=== PATIENT | female | born 1975 | race Caucasian/White ===

== ENCOUNTER 2016-08-09 17:15 | Observation (INO) | payer OTHER ==
[2016-08-09] MEDS ORDERED: NS 500 ML IV ONE (17:27)
[2016-08-09] MEDS ORDERED: ASPIRIN 81 MG CHEWABLE TAB PO ONE (17:27)
--- NOTE | 2016-08-09 17:27 | EDPHY ---
H & P Stated Complaint: cp off and on for a few weeks HPI/ROS: HPI CHIEF COMPLAINT: Chest pain HISTORY OF PRESENT ILLNESS: this patient very pleasant 41-year-old female, denies any significant medical problems, specifically denies a history of any heart disease, does not take any daily medications. She presents to the emergency room with left-sided chest discomfort described as a dull ache intermittently over the past 2 weeks. She does have family history of heart disease her father had an VA with coronary artery disease at her age. She has never had evaluation of her heart. She tells me over the past 2 weeks she has had intermittent chest discomfort. Today she developed a worsening chest discomfort at rest. She did have tingling in her left arm/hand. This since has resolved. She did go to urgent care was referred here to the emergency room. Upon arrival to the emergency room she denies having any chest pain shortness of breath or tingling or pleuritic pain. Past Medical History: Denies significant medical history Past Surgical History: Includes a large lipoma removed, and lobectomy last surgery was a month ago Social History: Denies use of drugs, alcohol, tobacco products Family History: Noncontributory ROS REVIEW OF SYSTEMS: A comprehensive 10 point review of systems is otherwise negative aside from elements mentioned in the history of present illness. Exam Constitutional triage nursing summary reviewed, vital signs reviewed, awake/ alert. Eyes normal conjunctivae and sclera, EOMI, PERRLA. HENT normal inspection, atraumatic, moist mucus membranes, no epistaxis, neck supple/ no meningismus, no raccoon eyes. Respiratory clear to auscultation bilaterally, normal breath sounds, no respiratory distress, no wheezing. Cardiovascular rate normal, regular rhythm, no murmur, no edema, distal pulses normal. Gastrointestinal soft, non-tender, no rebound, no guarding, normal bowel sounds, no distension, no pulsatile mass. Genitourinary no CVA tenderness. Musculoskeletal no midline vertebral tenderness, full range of motion, no calf swelling, no tenderness of extremities, no meningismus, good pulses, neurovascularly intact. Skin pink, warm, & dry, no rash, skin atraumatic. Neurologic awake, alert and oriented x 3, AAOx3, moves all 4 extremities equally, motor intact, sensory intact, CN II-XII intact, normal cerebellar, normal vision, normal speech. Psychiatric normal mood/affect. Heme/Lymph/Immune no lymphadenopathy. Differential diagnosis includes but is not limited to: ACS, atypical chest pain , pneumothorax, pneumonia, pulmonary embolism, aortic dissection, congestive heart failure, tumor, musculoskeletal pain, esophageal pain, GERD, peptic ulcer disease, pancreatitis Medical Decision Making: This patient had an IV established obtain blood work, she began full-dose aspirin, she is chest pain-free at this time. She will have an EKG, chest x-ray will rule out acute coronary syndrome here in the emergency room. Re-evaluation: EKG interpretation by me on record in [facility] system. Impression time of EKG is 1736, this is sinus rhythm rate of 55. there is no acute ST-elevation VA appreciated. There are borderline T-wave abnormalities V1, V2, V3. ED x-ray chest one view: Negative for acute cardiopulmonary disease. Image interpreted by myself. 191: Patient is resting comfortably here she is chest pain-free. I did speak with her. She is agreeable for admission overnight for serial enzymes and cardiac evaluation rule out. Will speak with the hospital service for admission. She is chest pain-free. Her troponin is negative. Chest x-ray unremarkable. Negative D-dimer. EKG shows T-wave abnormalities in anterior leads. Given her risk factors of family history, somewhat atypical cardiac presentation an abnormal EKG feel it is best to admit this patient for serial enzymes and stress test. She is agreeable for this. 1921: Spoke with the hospitalist service Dr. Cleveland Will admit. Source: Patient - Personal History LMP (Females 10-55): IUD In Place Current Tetanus/Diphtheria Vaccine: Yes - Medical/Surgical History Hx Asthma: No Hx Chronic Respiratory Disease: No Hx Diabetes: No Hx Cardiac Disease: No Hx Renal Disease: No Hx Cirrhosis: No Hx Alcoholism: No Hx HIV/AIDS: No Hx Splenectomy or Spleen Trauma: No Other PMH: DERMOID CYST REMOVAL, TONSILECTOMY - Social History Smoking Status: Never smoked Constitutional: Initial Vital Signs Temperature (C) 36.7 C 08/09/16 17:21 Heart Rate 54 L 08/09/16 17:21 Respiratory Rate 18 08/09/16 17:21 Blood Pressure 133/92 H 08/09/16 17:21 O2 Sat (%) 96 08/09/16 17:21 O2 Delivery Mode Room Air Allergies/Adverse Reactions: No Known Allergies Allergy (Verified 08/09/16 17:20) Home Medications: Medication Instructions Recorded Ibuprofen [Motrin (*)] 800 mg PO PRN PRN 08/09/16 Medical Decision Making - Data Points Laboratory Results: Laboratory Results 08/09/16 17:37 08/09/16 17:37 08/09/16 17:37 WBC 8.50 10^3/uL (3.80-9.50) RBC 4.95 10^6/uL (4.18-5.33) Hgb 15.1 g/dL (12.6-16.3) Hct 43.9 % (38.0-47.0) MCV 88.7 fL (81.5-99.8) MCH 30.5 pg (27.9-34.1) MCHC 34.4 g/dL (32.4-36.7) RDW 12.8 % (11.5-15.2) Plt Count 303 10^3/uL (150-400) MPV 10.3 fL (8.7-11.7) Neut % (Auto) 39.5 % (39.3-74.2) Lymph % (Auto) 43.6 % (15.0-45.0) Hooker % (Auto) 6.2 % (4.5-13.0) Eos % (Auto) 9.3 H % (0.6-7.6) Baso % (Auto) 1.3 % (0.3-1.7) Nucleat RBC Rel Count 0.0 % (0.0-0.2) Absolute Neuts (auto) 3.35 10^3/uL (1.70-6.50) Absolute Lymphs (auto) 3.71 H 10^3/uL (1.00-3.00) Absolute Monos (auto) 0.53 10^3/uL (0.30-0.80) Absolute Eos (auto) 0.79 H 10^3/uL (0.03-0.40) Absolute Basos (auto) 0.11 H 10^3/uL (0.02-0.10) Absolute Nucleated RBC 0.00 10^3/uL (0-0.01) Immature Gran % 0.1 % (0.0-1.1) Immature Gran # 0.01 10^3/uL (0.00-0.10) PT 13.8 SEC (12.0-15.0) INR 1.07 (0.83-1.16) APTT 29.2 SEC (23.0-38.0) D-Dimer < 0.27 ug/mLFEU (0.00-0.50) Sodium 140 mEq/L (134-144) Potassium 4.3 mEq/L (3.5-5.2) Chloride 106 mEq/L (97-110) Carbon Dioxide 24 mEq/l (22-31) Anion Gap 10 mEq/L (8-16) BUN 15 mg/dL (7-23) Creatinine 0.7 mg/dL (0.6-1.0) Estimated GFR > 60 Glucose 93 mg/dL (70-100) Calcium 9.8 mg/dL (8.5-10.4) Magnesium 1.9 mg/dL (1.6-2.3) Total Bilirubin 0.5 mg/dL (0.1-1.4) Conjugated Bilirubin 0.4 mg/dL (0.0-0.5) Unconjugated Bilirubin 0.1 mg/dL (0.0-1.1) AST 23 IU/L (14-46) ALT 27 IU/L (9-52) Alkaline Phosphatase 63 IU/L (38-126) Creatine Kinase 101 IU/L (0-156) CK-MB (CK-2) Fraction 0.56 ng/mL (0-3.19) Troponin I < 0.012 ng/mL (0-0.034) NT-Pro-B Natriuret Pep 20 pg/mL (0-125) Total Protein 7.7 g/dL (6.3-8.2) Albumin 4.7 g/dL (3.5-5.0) Lipase 133.0 IU/L (23-300) Beta HCG, Qual NEGATIVE Medications Given: Discontinued Medications Aspirin (Aspirin) 324 mg PO EDNOW ONE Stop: 08/09/16 17:28 Last Admin: 08/09/16 17:36 Dose: 324 mg Sodium Chloride (Ns) 500 mls @ 0 mls/hr IV ONCE ONE PRN Reason: As Directed Stop: 08/09/16 17:28 Last Admin: 08/09/16 17:40 Dose: 500 mls Departure - Departure Disposition: [facility] Inpatient Acute Clinical Impression: Chest pain Qualifiers: Chest pain type: unspecified Qualifier Code: (R07.9) Chest pain, unspecified Condition: Good Referrals: NONE *PRIMARY CARE P,. [Primary Care Provider] - As per Instructions
--- NOTE | 2016-08-09 17:39 | CPEKG ---
Heart Rate: 55 RR Interval: 1091 P-R Interval: 148 QRSD Interval: 96 QT Interval: 420 QTC Interval: 402 P Olney: 46 QRS Olney: 56 T Wave Olney: 38 EKG Severity - NORMAL ECG - EKG Impression: SINUS RHYTHM Electronically Signed By: David Shaw 09-Aug-2016 23:30:08
[2016-08-09 17:53] LABS: % IMMATURE GRANULYOCYTES 0.1 % (0.0-1.1); ABSOLUTE IMMATURE GRANULOCYTES 0.01 10^3/uL (0.00-0.10); ADD DIFF? NO; ADD MORPH? NO; ADD SCAN? NO; ATYPICAL LYMPHOCYTE FLAG 10 (0-99); FRAGMENT RBC FLAG 0 (0-99); HEMATOCRIT 43.9 % (38.0-47.0); HEMOGLOBIN 15.1 g/dL (12.6-16.3); LEFT SHIFT FLG 0 (0-99); LIPEMIA HEMOLYSIS FLAG 90 (0-99); MEAN CELL HEMOGLOBIN 30.5 pg (27.9-34.1); MEAN CELL HEMOGLOBIN CONCENTR. 34.4 g/dL (32.4-36.7); MEAN CELL VOLUME 88.7 fL (81.5-99.8); MEAN PLATELET VOLUME 10.3 fL (8.7-11.7); PLATELET CLUMPS FLAG 0 (0-99); PLATELET COUNT 303 10^3/uL (150-400); RED BLOOD CELL COUNT 4.95 10^6/uL (4.18-5.33); RED CELL DISTRIBUTION WIDTH 12.8 % (11.5-15.2)
[2016-08-09 18:04] LABS: INR 1.07 (0.83-1.16); PROTIME(PATIENT) 13.8 SEC (12.0-15.0)
[2016-08-09 18:05] LABS: APTT 29.2 SEC (23.0-38.0)
[2016-08-09 18:15] LABS: ALANINE AMINOTRANSFERASE 27 IU/L (9-52); ALBUMIN 4.7 g/dL (3.5-5.0); ALKALINE PHOSPHATASE 63 IU/L (38-126); ANION GAP 10 mEq/L (8-16); ASPARTATE AMINOTRANSFERASE 23 IU/L (14-46); BILIRUBIN,TOTAL 0.5 mg/dL (0.1-1.4); BILIRUBIN-CONJUGATED 0.4 mg/dL (0.0-0.5); BILIRUBIN-UNCONJUGATED 0.1 mg/dL (0.0-1.1); CALCIUM 9.8 mg/dL (8.5-10.4); CARBON DIOXIDE 24 mEq/l (22-31); CHLORIDE 106 mEq/L (97-110); CREATININE 0.7 mg/dL (0.6-1.0); GLOMERULAR FILTRATION RATE > 60; GLUCOSE 93 mg/dL (70-100); MAGNESIUM 1.9 mg/dL (1.6-2.3); POTASSIUM 4.3 mEq/L (3.5-5.2); SODIUM 140 mEq/L (134-144); TOTAL PROTEIN 7.7 g/dL (6.3-8.2)
--- NOTE | 2016-08-09 18:21 | DX ---
Portable Chest, Single View 17:50 Hours Indication: Chest pain Comparison: 2 view chest dated April 22, 2014 Findings: Lungs are well aerated and clear. No pneumothorax, edema or consolidation. Heart size withi n normal limits for degree of inspiration and AP technique. Impression: Clear lungs. Negative portable chest.
[2016-08-09 18:43] LABS: CREATINE KINASE-MB FRACTION 0.56 ng/mL (0-3.19)
[2016-08-09 19:06] LABS: TROPONIN I < 0.012 ng/mL (0-0.034)
[2016-08-09] MEDS ORDERED: ACETAMINOPHEN 325 MG TAB PO PRN (21:29)
[2016-08-09] MEDS ORDERED: ONDANSETRON DISINTEGRATING 4 MG TAB PO PRN (21:29)
[2016-08-09] MEDS ORDERED: ONDANSETRON 4 MG/2 ML VIAL IVP PRN (21:29)
--- NOTE | 2016-08-09 22:39 | GHP ---
[f rep st] HISTORY AND PHYSICAL DATE OF ADMISSION: 08/09/2016 DATE OF EVALUATION: 08/09/2016 CHIEF COMPLAINT: Chest pain. HISTORY OF PRESENT ILLNESS: This is a 41-year-old female with about 3 weeks of left-sided chest pain not associated with any shortness of breath or lightheadedness. It is kind of a dull throbbing, rad iating to her left arm. Her left arm has also became numb today, which is why she presented to the e mergency department. PAST MEDICAL AND SURGICAL HISTORY: None. MEDICATIONS: None. ALLERGIES: None. FAMILY HISTORY: She has no first degree relatives with coronary artery disease, but she does have mu ltiple members on the paternal side of her family with coronary artery disease. SOCIAL HISTORY: She does not smoke. She does not drink. REVIEW OF SYSTEMS: A 10-point review of systems is conducted and is negative except per HPI. PHYSICAL EXAM: VITAL SIGNS: Blood pressure 118/79, heart rate 78, respiration rate 14, satting 94% on room air, temperature is 36.9. GENERAL: The patient is a very pleasant young female who appears comfortable, in no acute distress. HEENT: Shows her to be normocephalic, atraumatic. CARDIOVASCULA R: Regular rate and rhythm. No murmurs, rubs or gallops. CHEST: Shows her to be mildly tender to palpation over her left chest. Pain is not triggered by movement of her left arm. The pain does not seem to really be reproducible by palpation, however. PULMONARY: Shows lungs clear to auscultation bilaterally. ABDOMEN: Soft, nontender, nondistended. SKIN: Shows no rash. : No Cheek. NEURO LOGIC: Shows her to be alert and oriented x3. She is moving all extremities. PSYCHIATRIC: Shows n ormal mood and affect. LABS: Comprehensive metabolic panel is normal. CBC is normal. INR is normal. D-dimer negative. DATA: 1. EKG, which I personally reviewed and interpreted and compared to her old, shows mild biphasic T-w aves in V2 to V3. These were present previously. 2. Chest x-ray, which I personally reviewed and interpreted, is normal, there is nothing acute. IMPRESSION AND PLAN: A 41-year-old female with chest pain. Chest pain: She is relatively low risk. She is concerned about this, I will order a treadmill EKG t o be done tomorrow. We will check 2 more troponins as well. Her D-dimer is negative. I do not susp ect any other pathology. This may be musculoskeletal. /[id number]/MODL
[2016-08-10 07:36] VITALS: TEMP 209.1
[2016-08-10 10:34] VITALS: BP 133/77; PULSE 88; RESP 17; O2SAT 98
--- NOTE | 2016-08-10 10:42 | HOSPPROG ---
Hospitalist Progress Note Assessment/Plan: 41 yo F w w low risk cp and neg stress Subjective: neg stress Objective: Vital Signs Temp Pulse Resp BP Pulse Ox 98.4 C H 88 17 133/77 H 98 08/10/16 07:35 08/10/16 10:33 08/10/16 10:33 08/10/16 10:33 08/10/16 10:33 08/09/16 08/10/16 08/11/16 05:59 05:59 05:59 Intake Total 750 Balance 750 PT 13.8 SEC (12.0-15.0) 08/09/16 17:37 INR 1.07 (0.83-1.16) 08/09/16 17:37 - Physical Exam Constitutional: no apparent distress, appears nourished Eyes: PERRL, anicteric sclera Ears, Nose, Mouth, Throat: moist mucous membranes, hearing normal Cardiovascular: regular rate and rhythym, no murmur, rub, or gallop Respiratory: no respiratory distress, no rales or rhonchi Gastrointestinal: normoactive bowel sounds, soft, non-tender abdomen Genitourinary: No peña in urethra Skin: warm Musculoskeletal: full muscle strength Neurologic: AAOx3 ICD10 Worksheet Patient Problems: Problems Problem Status Diagnosed Chest pain Acute
--- NOTE | 2016-08-10 11:26 | GDS ---
[f rep st] DISCHARGE SUMMARY DISCHARGE DIAGNOSIS: Low risk chest pain. HOSPITAL COURSE: Please see admission history and physical by Dr. Zoran Cleveland. The patient presente d with chest pain. Negative D-dimer. Nonischemic EKG. Exercise treadmill test demonstrated good ex ercise tolerance, and no ST or T-wave changes. She was discharged home with no prescriptions. /[id number]/MODL
--- NOTE | 2016-08-10 18:00 | CPR ---
[f rep st] NONINVASIVE CARDIAC PROCEDURE REPORT DATE OF PROCEDURE: 08/10/2016 PROCEDURE: Exercise treadmill test. INDICATION: The patient is a 41-year-old female, who has been complaining of intermittent left-sided chest discomfort for the past few weeks. Her discomfort moves in location and changes in severity. Her discomfort progressed prior to admission, and she also developed left hand numbness and therefor e presented to the hospital. She denies any history of diabetes, hypertension, hyperlipidemia or maurizio or tobacco use. She does have a strong family history of premature coronary artery disease. Her fat her had coronary disease diagnosed in his early 40s, and her paternal grandfather had a CABG in his 5 0s. She states that multiple family members on her father's side including uncles had coronary disea se. DESCRIPTION OF PROCEDURE: Consent was obtained and the patient was placed on continuous telemetry. Her resting EKG reveals normal sinus rhythm with heart rate of 65, OK interval 147, QRS duration of 1 05 and a QTc of 403. She has nonspecific T-wave changes in V2 and V3. She exercised on the treadmil l for 12 minutes without symptoms of chest discomfort. Her T-wave changes in V2 and V3 improved with initial exercise. There were no ST-T wave changes throughout the study to suggest ischemia. Her bl ood pressure at rest was 110/80, and increased appropriately peaking at 164/60. Her blood pressure a nd heart rate returned to baseline within 5 minutes of recovery. PLAN: Normal exercise treadmill test. /[id number]/MODL
== END 2016-08-10 11:02 | disposition home or self-care (01) ==
LOC: F2N 21:25
PROVIDERS: ADMIT Student in an Organized Health Care Education/Training Program; ATTEND Student in an Organized Health Care Education/Training Program
DX: R07.9 Chest pain, unspecified (principal); Z86.79 Personal history of other diseases of the circulatory system
CPT/HCPCS: G0378

== ENCOUNTER → 2017-01-21 | Outpatient (CLI) | payer OTHER | LOC: FIMAGING 13:30 | PROVIDERS: ATTEND Obstetrics & Gynecology | DX: Z12.31 Encounter for screening mammogram for malignant neoplasm of breast (principal) | CPT/HCPCS: G0202 ==

== ENCOUNTER → 2018-02-22 | Outpatient (CLI) | payer OTHER | DX: Z12.31 Encounter for screening mammogram for malignant neoplasm of breast (principal) ==